=== PATIENT | male | born 1930 | race Caucasian/White ===

== ENCOUNTER 2018-02-04 18:17 | Emergency (ER) | payer OTHER, BC ==
[~2018-02-04] VITALS: Ht 170.1 cm; Wt 81.6 kg
== END 2018-02-04 20:37 | disposition home or self-care (01) ==
LOC: ED 18:17
DX: R07.81 Pleurodynia (principal); M54.2 Cervicalgia; V49.59XA Passenger injured in collision with other motor vehicles in traffic accident, initial encounter; Y93.89 Activity, other specified; Y92.89 Other specified places as the place of occurrence of the external cause; Y99.9 Unspecified external cause status